=== PATIENT | male | born 1950 | race Caucasian/White ===

== ENCOUNTER → 2016-11-29 | Outpatient (CLI) | payer OTHER ==
[~2016-11-29] MED LIST: FISH OIL300 MG PO; METFORMIN HCL1000 MG PO; NEURONTIN 300300 MG PO; PIOGLITAZONE HC45 MG PO; SPIRIVA18 MCG INH; SYMBICORT 16010.2 GM INH; VENTOLIN/PROVE0.5 ML INH
== END ==
LOC: KOH-I 14:46
DX: I73.9 Peripheral vascular disease, unspecified (principal)
CPT/HCPCS: 93925

== ENCOUNTER → 2016-11-30 | Day surgery (SDC) | payer OTHER ==
[~2016-11-30] VITALS: Ht 185.4 cm; Wt 110.2 kg
== END | disposition home or self-care (01) ==
LOC: OR 07:57
PROVIDERS: Surgery
PROC: 0DJD8ZZ Inspection of Lower Intestinal Tract, Via Natural or Artificial Opening Endoscopic (ICD-10-PCS; principal; 2016-11-30 08:15)
DX: K57.30 Diverticulosis of large intestine without perforation or abscess without bleeding (principal); I48.91 Unspecified atrial fibrillation; J44.9 Chronic obstructive pulmonary disease, unspecified; E11.42 Type 2 diabetes mellitus with diabetic polyneuropathy; E78.5 Hyperlipidemia, unspecified; I10 Essential (primary) hypertension; E83.42 Hypomagnesemia; E66.9 Obesity, unspecified; J18.9 Pneumonia, unspecified organism; M19.90 Unspecified osteoarthritis, unspecified site; E55.9 Vitamin D deficiency, unspecified; Z86.010 Personal history of colon polyps; Z86.718 Personal history of other venous thrombosis and embolism; Z87.891 Personal history of nicotine dependence; Z79.899 Other long term (current) drug therapy; Z85.118 Personal history of other malignant neoplasm of bronchus and lung; Z98.41 Cataract extraction status, right eye; Z98.42 Cataract extraction status, left eye; Z87.19 Personal history of other diseases of the digestive system
CPT/HCPCS: 82962; J7120

== ENCOUNTER → 2017-01-03 | Outpatient (CLI) | payer BLACK LUNG, OTHER ==
[2017-01-03 08:57] LABS: HEMOGLOBIN 14.9 gm/dl (14.0-17.5); RED BLOOD COUNT 5.24 M/UL (4.20-5.50); WHITE BLOOD COUNT 6.4 K/UL (4.5-11.0)
[2017-01-03 09:15] LABS: BUN/CREATININE RATIO 19 (0-10)
== END ==
LOC: LAB 08:25
PROVIDERS: Internal Medicine Hematology & Oncology
DX: C34.11 Malignant neoplasm of upper lobe, right bronchus or lung (principal); R04.0 Epistaxis; R63.4 Abnormal weight loss; R05 Cough; I10 Essential (primary) hypertension
CPT/HCPCS: 36415; 80053; 85025

== ENCOUNTER → 2017-01-04 | Outpatient (CLI) | payer BLACK LUNG, OTHER | LOC: CT 10:43 | DX: C34.12 Malignant neoplasm of upper lobe, left bronchus or lung (principal); R04.0 Epistaxis; R63.4 Abnormal weight loss; R05 Cough; I10 Essential (primary) hypertension | CPT/HCPCS: 71260; J7050; Q9962 ==

== ENCOUNTER → 2020-10-28 | Outpatient (CLI) | payer OTHER, BLACK LUNG ==
[2020-10-28 09:07] LABS: HEMOGLOBIN 15.2 gm/dl (14.0-17.5); RED BLOOD COUNT 5.22 M/UL (4.20-5.50); WHITE BLOOD COUNT 5.9 K/UL (4.5-11.0)
[2020-10-28 09:35] LABS: BUN/CREATININE RATIO 15 (0-10)
== END ==
LOC: LAB 08:48
PROVIDERS: Internal Medicine Hematology & Oncology
DX: R04.0 Epistaxis (principal); R63.4 Abnormal weight loss; R05 Cough; I10 Essential (primary) hypertension
CPT/HCPCS: 36415; 80053; 85025

== ENCOUNTER → 2020-10-29 | Outpatient (CLI) | payer OTHER | LOC: CT 08:11 | DX: R04.0 Epistaxis (principal); R63.4 Abnormal weight loss; R05 Cough; I10 Essential (primary) hypertension; J98.4 Other disorders of lung | CPT/HCPCS: 71260; Q9963 ==

== ENCOUNTER → 2021-04-02 | Outpatient (CLI) | payer OTHER, BLACK LUNG ==
[~2021-04-02] MED LIST changes: +DAILY VALUE1 EACH PO; +DECADRON6 MG PO; +DRISDOL1250 MCG PO; +ELIQUIS 5 MG TAB5 MG PO; +LOPRESSOR 25 MG25 MG PO; +PROAIR DIGIHAL90 MCG INH; +SPIRIVA RESPIMAT4 GM INH; -SPIRIVA18 MCG INH; -VENTOLIN/PROVE0.5 ML INH; +VITAMIN C500 M4 PO
== END ==
LOC: EXRD 08:54
DX: Z13.6 Encounter for screening for cardiovascular disorders (principal); C34.90 Malignant neoplasm of unspecified part of unspecified bronchus or lung; F17.200 Nicotine dependence, unspecified, uncomplicated
CPT/HCPCS: 76706

== ENCOUNTER 2021-04-26 08:00 | Observation (INO) | payer OTHER, BLACK LUNG ==
[~2021-04-26] VITALS: Ht 185.4 cm; Wt 111.6 kg
[~2021-04-26 08:00] MED LIST changes: -DAILY VALUE1 EACH PO; -DECADRON6 MG PO; -DRISDOL1250 MCG PO; -ELIQUIS 5 MG TAB5 MG PO; -LOPRESSOR 25 MG25 MG PO; -PIOGLITAZONE HC45 MG PO; -PROAIR DIGIHAL90 MCG INH; -SPIRIVA RESPIMAT4 GM INH; -VITAMIN C500 M4 PO
[2021-04-26 08:38] LABS: HEMOGLOBIN 16.4 gm/dl (14.0-17.5); RED BLOOD COUNT 5.61 M/UL (4.20-5.50); WHITE BLOOD COUNT 5.4 K/UL (4.5-11.0)
[2021-04-26] MEDS ORDERED: PIOGLITAZONE HC45 MG PO (08:49)
[2021-04-26] MEDS ORDERED: SPIRIVA RESPIMAT4 GM INH (08:50)
[2021-04-26] MEDS ORDERED: PROAIR DIGIHAL90 MCG INH (08:51)
[2021-04-26] MEDS ORDERED: DRISDOL1250 MCG PO (14:42)
[2021-04-26] MEDS ORDERED: VITAMIN C500 M4 PO (14:43)
[2021-04-26] MEDS ORDERED: DAILY VALUE1 EACH PO (14:43)
[2021-04-27 06:48] LABS: WHITE BLOOD COUNT 4.2 K/UL (4.5-11.0)
[2021-04-27 06:50] LABS: HEMOGLOBIN 14.3 gm/dl (14.0-17.5); RED BLOOD COUNT 4.9 M/UL (4.20-5.50)
[2021-04-27 07:43] LABS: BUN/CREATININE RATIO 28 (0-10)
[2021-04-28 06:19] LABS: HEMOGLOBIN 13.8 gm/dl (14.0-17.5); RED BLOOD COUNT 4.77 M/UL (4.20-5.50)
[2021-04-28 06:32] LABS: WHITE BLOOD COUNT 6.9 K/UL (4.5-11.0)
[2021-04-28 06:54] LABS: BUN/CREATININE RATIO 20 (0-10)
[2021-04-28] MEDS ORDERED: DECADRON6 MG PO (12:04)
[2021-04-28] MEDS ORDERED: ELIQUIS 5 MG TAB5 MG PO (12:04)
[2021-04-28] MEDS ORDERED: LOPRESSOR 25 MG25 MG PO (12:04)
== END 2021-04-28 16:32 | disposition home or self-care (01) ==
LOC: ER1 08:00 → CDU 11:26 → MED SURG 4 11:26
PROVIDERS: Physician Assistant Medical; ADMIT Internal Medicine Infectious Disease
DX: U07.1 COVID-19 (principal); J12.82 Pneumonia due to coronavirus disease 2019; J44.0 Chronic obstructive pulmonary disease with (acute) lower respiratory infection; J96.01 Acute respiratory failure with hypoxia; I48.0 Paroxysmal atrial fibrillation; E87.6 Hypokalemia; E11.9 Type 2 diabetes mellitus without complications; E87.2 Acidosis; Z87.891 Personal history of nicotine dependence; Z85.118 Personal history of other malignant neoplasm of bronchus and lung; Z92.21 Personal history of antineoplastic chemotherapy; Z79.84 Long term (current) use of oral hypoglycemic drugs; Z79.899 Other long term (current) drug therapy
CPT/HCPCS: ECHO; 36600; 71045; 80048; 80053; 82550; 82553; 82728; 82803; 82962; 83605; 83735; 83874; 83880; 84132; 84443; 84484; 85025; 85027; 85379; 85610; 86140; 87040; 93005; 93306; 94640; 94664; 94760; 96374; 96375; 96376; 99285; G0378; J0456; J0696; J1100; J3475; J7030; U0002

== ENCOUNTER → 2021-04-30 | Outpatient (CLI) | payer OTHER ==
[~2021-04-30] MED LIST changes: +DAILY VALUE1 EACH PO; +DECADRON6 MG PO; +DRISDOL1250 MCG PO; +ELIQUIS 5 MG TAB5 MG PO; +LOPRESSOR 25 MG25 MG PO; +PIOGLITAZONE HC45 MG PO; +PROAIR DIGIHAL90 MCG INH; +SPIRIVA RESPIMAT4 GM INH; +VITAMIN C500 M4 PO
[2021-04-30 08:33] LABS: RED BLOOD COUNT 5.43 M/UL (4.20-5.50); WHITE BLOOD COUNT 8.7 K/UL (4.5-11.0)
[2021-04-30 08:53] LABS: BUN/CREATININE RATIO 26 (0-10)
== END ==
LOC: CT 08:00
PROVIDERS: Internal Medicine Hematology & Oncology
DX: R04.0 Epistaxis (principal); R63.4 Abnormal weight loss; R05 Cough; I10 Essential (primary) hypertension; R91.8 Other nonspecific abnormal finding of lung field; K80.20 Calculus of gallbladder without cholecystitis without obstruction; K76.0 Fatty (change of) liver, not elsewhere classified; K44.9 Diaphragmatic hernia without obstruction or gangrene; M19.011 Primary osteoarthritis, right shoulder; M19.012 Primary osteoarthritis, left shoulder; I25.10 Atherosclerotic heart disease of native coronary artery without angina pectoris; I77.819 Aortic ectasia, unspecified site
CPT/HCPCS: 36415; 71260; 80053; 85027; Q9967

== ENCOUNTER → 2021-07-13 | Outpatient (CLI) | payer OTHER | LOC: HEART 5 07:30 | DX: I48.91 Unspecified atrial fibrillation (principal); I10 Essential (primary) hypertension; E11.9 Type 2 diabetes mellitus without complications; R94.31 Abnormal electrocardiogram [ECG] [EKG] | CPT/HCPCS: 78452; A9502; J2785 ==

== ENCOUNTER → 2021-10-27 | Outpatient (CLI) | payer OTHER ==
[2021-10-27 09:17] LABS: HEMOGLOBIN 14.4 gm/dl (14.0-17.5); RED BLOOD COUNT 4.95 M/UL (4.20-5.50); WHITE BLOOD COUNT 5.8 K/UL (4.5-11.0)
[2021-10-27 09:49] LABS: BUN/CREATININE RATIO 16 (0-10)
== END ==
LOC: LAB 07:56
PROVIDERS: Internal Medicine Hematology & Oncology
DX: I10 Essential (primary) hypertension (principal); R04.0 Epistaxis; R63.4 Abnormal weight loss; R05.9 Cough, unspecified
CPT/HCPCS: 36415; 80053; 85025

== ENCOUNTER → 2021-10-28 | Outpatient (CLI) | payer BLACK LUNG, OTHER | LOC: CT 08:00 | DX: R05.9 Cough, unspecified (principal); R63.4 Abnormal weight loss; R01.0 Benign and innocent cardiac murmurs; I10 Essential (primary) hypertension; R91.8 Other nonspecific abnormal finding of lung field | CPT/HCPCS: 71260; Q9967 ==

== ENCOUNTER → 2022-05-05 | Outpatient (CLI) | payer OTHER ==
[2022-05-05 12:56] LABS: HEMOGLOBIN 14.4 gm/dl (14.0-17.5); RED BLOOD COUNT 4.89 M/UL (4.20-5.50); WHITE BLOOD COUNT 6.9 K/UL (4.5-11.0)
[2022-05-05 13:15] LABS: BUN/CREATININE RATIO 14 (0-10)
== END ==
LOC: CT 05-02 11:00
PROVIDERS: Internal Medicine Hematology & Oncology
DX: R04.0 Epistaxis (principal); R63.4 Abnormal weight loss; R05.9 Cough, unspecified; I10 Essential (primary) hypertension; J84.10 Pulmonary fibrosis, unspecified
CPT/HCPCS: 36415; 71260; 80053; 85025; Q9967